=== PATIENT | male | born 1970 | race Caucasian/White ===

== ENCOUNTER 2020-12-22 19:05 | Emergency (ER) | payer BC ==
[2020-12-22] MEDS ORDERED: levETIRAcetam 500 MG in Sodium Chloride 0.9% 100 ML IV ONE (19:09)
[2020-12-22] MEDS ORDERED: LORazepam 2 MG/ML SDV IVPUSH ONE (19:09)
--- NOTE | 2020-12-22 19:14 | EDM.PDOC ---
ED HPI GENERAL MEDICAL PROBLEM - General Chief Complaint: Neuro Symptoms/Deficits Stated Complaint: MAIDA AMB Time Seen by Provider: 12/22/20 19:08 Source of Information: Reports: EMS History Limitations: Reports: Altered Mental Status - History of Present Illness INITIAL COMMENTS - FREE TEXT/NARRATIVE: 50-year-old male presents to the ED per [facility]. Apparently he and others were furniture shopping at [facility] [employer] this evening. Patient suddenly collapsed to the floor and exhibited tonic-clonic activity compatible with grand mal seizure lasting for between 30 and 60 seconds. Apparently CPR was started on scene. It is unclear for how long. Paramedics identified that the patient was confused and disoriented but could answer simple questions. Patient did bite his tongue and was incontinent of urine compatible with a seizure. He reports that he has had no seizure in the past. Is unclear if he is on any medications that may have precipitated seizure. Paramedics established an IV of D5 normal saline. He was given Zofran 4 mg IV. Upon arrival he remains postictal. Complains of pain left shoulder and clavicle on exam. No obvious injuries to his head. Apparently he fell to a carpeted floor in the furniture store. Lungs were clear. Vital signs are normal. Onset: Today, Sudden Onset Date: 12/22/20 Onset Time: 18:45 Duration: Minutes: Location: Reports: Upper Extremity, Left (Had pain when he was rolled onto the gurney in his left shoulder-distal clavicle area) Quality: Reports: Other Severity: Moderate (Patient does not unable to quantify the pain at this time.) Improves with: Reports: Rest Worsens with: Reports: Movement (Of the left upper extremity.) Context: Reports: Other (New onset seizure with fall to a carpeted concrete floor.). Denies: Activity, Exercise, Lifting, Sick Contact, Trauma Associated Symptoms: Reports: Confusion, Malaise. 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) (None.) Left Shoulder Pain Score (Numeric/FACES): 8 - Related Data Allergies Allergy/AdvReac Type Severity Reaction Status Date / Time milk AdvReac Severe Nausea Verified 12/22/20 19:11 Home Meds: Home Meds Albuterol [Ventolin HFA] 2 puff INH Q4H PRN #1 puff 05/05/14 [Rx] Fluticasone Propion/Salmeterol [Advair 250-50 Diskus] 1 inh INH DAILY 12/22/20 [History] Simvastatin [Zocor] 0 mg PO BEDTIME 12/22/20 [History] oxyCODONE HCl/Acetaminophen [Percocet 5-325 mg Tablet] 1 - 2 each PO Q4H PRN #16 tablet 12/22/20 [Rx] Past Medical History Cardiovascular History: Reports: High Cholesterol Respiratory History: Reports: Asthma (Uses Advair Diskus daily and albuterol metered-dose inhaler as needed) - Past Surgical History Other HEENT Surgeries/Procedures: adenoidectomy Social & Family History - Tobacco Use Tobacco Use Within Last Twelve Months: Snuff/Dip - Alcohol Use Alcohol Use History: Yes Days Per Week of Alcohol Use: 0 (Social alcohol user but very rare. Maybe once every 2 to 3 months.) - Recreational Drug Use Recreational Drug Use: No - Living Situation & Occupation Living situation: Reports: with Significant Other Occupation: Employed ED ROS GENERAL - Review of Systems Review Of Systems: See Below (Able to provide review of systems once his cognitive function returned after suffering a grand mal seizure.) Reason Not Obtained: Information was obtained from both his significant other and hims Constitutional: Reports: Malaise, Fatigue. Denies: Fever, Chills HEENT: Reports: Glasses Respiratory: Reports: Wheezing (Patient has a history of chronic asthma.) Cardiovascular: Reports: No Symptoms Endocrine: Reports: No Symptoms GI/Abdominal: Reports: Diarrhea (Occasional bouts of diarrhea. Patient is known to be lactose intolerant.) : Reports: No Symptoms Musculoskeletal: Reports: No Symptoms Skin: Reports: No Symptoms Neurological: Reports: No Symptoms Psychiatric: Reports: No Symptoms Hematologic/Lymphatic: Reports: No Symptoms Immunologic: Reports: No Symptoms - Physical Exam Exam: See Below Exam Limited By: Altered Mental Status General Appearance: Lethargic (Postictal state.), Mild Distress, Other (Temperature 36.2. Patient is actually cool to touch and sweaty. Heart rate was 87. Respiratory is 18 with O2 sats 100% room air. BP 119/66.) Eye Exam: Bilateral Eye: Normal Inspection (No scleral icterus or blepharal pallor.), PERRL (No gaze palsy) Throat/Mouth: Normal Lips, Normal Teeth, Evidence of Tongue Biting (Patient has bit the tip of his tongue bilaterally. No active bleeding) Head Exam: Atraumatic, Normocephalic, Other (No outward signs of head or facial trauma.) Neck: Normal Inspection, Supple, Non-Tender. No: Lymphadenopathy (L), Lymphadenopathy (R) Respiratory/Chest: No Respiratory Distress, Lungs Clear, Normal Breath Sounds, No Accessory Muscle Use. No: Rhonchi, Wheezing Cardiovascular: Normal Peripheral Pulses, Regular Rate, Rhythm, No Edema, No Gallop, No Murmur, No Rub GI/Abdominal: Normal Bowel Sounds, Soft, Non-Tender, No Organomegaly, No Distention, Other (Firm lower abdomen. Questionable full bladder.) (Male) Exam: Other (Patient has been incontinent of urine.) Neuro Exam (Abbreviated): Confused, Slow to Respond DTR: 0: Achilles (R), Achilles (L), 1+: Bicep (R), Bicep (L), Patella (R), Patella (L) Back Exam: Normal Inspection, Other (No outward signs of trauma to the thoracic or lumbar spine.) Extremities: Normal Inspection, No Pedal Edema, Other (Clinically he has not dislocated his left shoulder. Complains of pain over the acromioclavicular joint and distal clavicle. No obvious deformities or hematomas. No other obvious injuries identified.) Psychiatric: Other Skin Exam: Cool, Diaphoretic (Mildly diaphoretic.) #1 Interpretation EKG Date: 12/22/20 Time: 19:22 Rhythm: NSR Rate (Beats/Min): 74 [place]: Normal P-Wave: Present QRS: Other (RSR prime wave in V2 consider normal variant. Minimal Q waves present in leads I and aVL less than 25% of the QRS complex and are considered insignificant. Left ventricular hypertrophy pattern) QT: Prolonged (Moderately prolonged) Course - Vital Signs Last Recorded V/S: Last Vital Signs Temp 36.2 C 12/22/20 19:08 Pulse 68 12/22/20 21:26 Resp 16 12/22/20 21:26 BP 115/71 12/22/20 21:26 Pulse Ox 98 12/22/20 21:26 - Orders/Labs/Meds Orders: Active Orders 24 hr Category Date Time Status Chest 1V Frontal [CR] Stat Exams 12/22/20 19:14 Taken Shoulder Comp Lt [CR] Stat Exams 12/22/20 19:14 Taken Durable Medical Equipment for Discharge [DME for Oth 12/22/20 21:24 Ordered Discharge] [COMM] Stat Labs: Laboratory Tests 12/22/20 12/22/20 12/22/20 Range/Units 19:10 19:10 19:22 WBC 9.64 H (4.23-9.07) K/mm3 RBC 4.76 (4.63-6.08) M/mm3 Hgb 13.0 L (13.7-17.5) gm/dl Hct 38.8 L (40.1-51.0) % MCV 81.5 (79.0-92.2) fl MCH 27.3 (25.7-32.2) pg MCHC 33.5 (32.2-35.5) g/dl RDW Std Deviation 42.7 (35.1-43.9) fL Plt Count 339 H (163-337) K/mm3 MPV 9.1 L (9.4-12.3) fl Neut % (Auto) 36.2 (34.0-67.9) % Lymph % (Auto) 52.3 (21.8-53.1) % [place] % (Auto) 9.2 (5.3-12.2) % Eos % (Auto) 1.1 (0.8-7.0) Baso % (Auto) 0.5 (0.1-1.2) % Neut # (Auto) 3.48 (1.78-5.38) K/mm3 Lymph # (Auto) 5.04 H (1.32-3.57) K/mm3 [place] # (Auto) 0.89 H (0.30-0.82) K/mm3 Eos # (Auto) 0.11 (0.04-0.54) K/mm3 Baso # (Auto) 0.05 (0.01-0.08) K/mm3 Manual Slide Review Abnormal smear Sodium 141 (136-145) mEq/L Potassium 3.6 (3.5-5.1) mEq/L Chloride 103 (98-107) mEq/L Carbon Dioxide 16 L (21-32) mEq/L Anion Gap 25.6 H (5-15) BUN 13 (7-18) mg/dL Creatinine 1.5 H (0.7-1.3) mg/dL Est Cr Clr Drug Dosing 57.33 mL/min Estimated GFR (MDRD) 50 (>60) mL/min BUN/Creatinine Ratio 8.7 L (14-18) Glucose 103 H (70-99) mg/dL Lactic Acid 8.8 H* (0.4-2.0) mmol/L Calcium 9.0 (8.5-10.1) mg/dL Magnesium 2.2 (1.8-2.4) mg/dL Total Bilirubin 0.2 (0.2-1.0) mg/dL AST 36 (15-37) U/L ALT 43 (16-63) U/L Alkaline Phosphatase 117 H (46-116) U/L C-Reactive Protein < 0.2 (<1.0) mg/dL Total Protein 7.0 (6.4-8.2) g/dl Albumin 3.7 (3.4-5.0) g/dl Globulin 3.3 gm/dL Albumin/Globulin Ratio 1.1 (1-2) Urine Color (Yellow) Urine Appearance (Clear) Urine pH (5.0-8.0) Ur Specific [place] (1.005-1.030) Urine Protein (Negative) Urine Glucose (UA) (Negative) Urine Ketones (Negative) Urine Occult Blood (Negative) Urine Nitrite (Negative) Urine Bilirubin (Negative) Urine Urobilinogen (0.2-1.0) Ur Leukocyte Esterase (Negative) U Hyaline Cast (Auto) (0-5) /lpf Urine RBC (0-5) /hpf Urine WBC (0-5) /hpf Ur Epithelial Cells (0-5) /hpf Urine Bacteria (FEW) /hpf Urine Mucus (FEW) /hpf Urine Opiates Screen (NEBJZI=736) Ur Buprenorphine Scrn (CUTOFF=10) Ur Oxycodone Screen (PLB8WN=350) Urine Methadone Screen (TZF0XU=991) Ur Propoxyphene Screen (VSCBIW=097) Ur Barbiturates Screen (CPWDTS=173) Ur Tricyclics Screen (DUDFFD=728) Ur Phencyclidine Scrn (CUTOFF=25) Ur Amphetamine Screen (YJVBZT=167) U Methamphetamines Scrn (HRYDGP=727) U Benzodiazepines Scrn (MQCPKB=650) U Cocaine Metab Screen (NLOWSB=425) U Marijuana (THC) Screen (CUTOFF=50) Ethyl Alcohol 0.00 (0.00) gm% 12/22/20 12/22/20 Range/Units 20:15 20:15 WBC (4.23-9.07) K/mm3 RBC (4.63-6.08) M/mm3 Hgb (13.7-17.5) gm/dl Hct (40.1-51.0) % MCV (79.0-92.2) fl MCH (25.7-32.2) pg MCHC (32.2-35.5) g/dl RDW Std Deviation (35.1-43.9) fL Plt Count (163-337) K/mm3 MPV (9.4-12.3) fl Neut % (Auto) (34.0-67.9) % Lymph % (Auto) (21.8-53.1) % [place] % (Auto) (5.3-12.2) % Eos % (Auto) (0.8-7.0) Baso % (Auto) (0.1-1.2) % Neut # (Auto) (1.78-5.38) K/mm3 Lymph # (Auto) (1.32-3.57) K/mm3 [place] # (Auto) (0.30-0.82) K/mm3 Eos # (Auto) (0.04-0.54) K/mm3 Baso # (Auto) (0.01-0.08) K/mm3 Manual Slide Review Sodium (136-145) mEq/L Potassium (3.5-5.1) mEq/L Chloride (98-107) mEq/L Carbon Dioxide (21-32) mEq/L Anion Gap (5-15) BUN (7-18) mg/dL Creatinine (0.7-1.3) mg/dL Est Cr Clr Drug Dosing mL/min Estimated GFR (MDRD) (>60) mL/min BUN/Creatinine Ratio (14-18) Glucose (70-99) mg/dL Lactic Acid (0.4-2.0) mmol/L Calcium (8.5-10.1) mg/dL Magnesium (1.8-2.4) mg/dL Total Bilirubin (0.2-1.0) mg/dL AST (15-37) U/L ALT (16-63) U/L Alkaline Phosphatase (46-116) U/L C-Reactive Protein (<1.0) mg/dL Total Protein (6.4-8.2) g/dl Albumin (3.4-5.0) g/dl Globulin gm/dL Albumin/Globulin Ratio (1-2) Urine Color Yellow (Yellow) Urine Appearance Clear (Clear) Urine pH 5.5 (5.0-8.0) Ur Specific [place] > or = 1.030 (1.005-1.030) Urine Protein 3+ H (Negative) Urine Glucose (UA) Negative (Negative) Urine Ketones Negative (Negative) Urine Occult Blood Negative (Negative) Urine Nitrite Negative (Negative) Urine Bilirubin Negative (Negative) Urine Urobilinogen 0.2 (0.2-1.0) Ur Leukocyte Esterase Negative (Negative) U Hyaline Cast (Auto) 10-20 H (0-5) /lpf Urine RBC Not seen (0-5) /hpf Urine WBC 5-10 H (0-5) /hpf Ur Epithelial Cells Not seen (0-5) /hpf Urine Bacteria Few (FEW) /hpf Urine Mucus Not seen (FEW) /hpf Urine Opiates Screen Negative (JNVTEO=996) Ur Buprenorphine Scrn Negative (CUTOFF=10) Ur Oxycodone Screen Negative (GIU9OV=358) Urine Methadone Screen Negative (CFY6WH=119) Ur Propoxyphene Screen Negative (GALIUG=874) Ur Barbiturates Screen Negative (BBTADF=059) Ur Tricyclics Screen Negative (LEAJGD=404) Ur Phencyclidine Scrn Negative (CUTOFF=25) Ur Amphetamine Screen Negative (TILWEE=070) U Methamphetamines Scrn Negative (LMXUAW=552) U Benzodiazepines Scrn Negative (ETVKTU=049) U Cocaine Metab Screen Negative (BUEDJS=893) U Marijuana (THC) Screen Presumptive positive H (CUTOFF=50) Ethyl Alcohol (0.00) gm% Meds: Medications Discontinued Medications Generic Name Dose Route Start Last Admin Trade Name Freq PRN Reason Stop Dose Admin Hydromorphone HCl 0.5 mg 12/22/20 20:00 Hydromorphone 0.5 Mg/0.5 Ml Syringe IVPUSH 12/22/20 20:01 ONETIME ONE Hydromorphone HCl 0.5 mg 12/22/20 20:01 12/22/20 20:31 Hydromorphone 0.5 Mg/0.5 Ml Syringe IVPUSH 12/22/20 20:02 0.5 mg ONETIME ONE Administration Dextrose/Sodium Chloride 1,000 mls @ 150 mls/hr 12/22/20 19:15 12/22/20 19:34 Dextrose 5%-Normal Saline IV 150 mls/hr ASDIRECTED JAMILA Administration Levetiracetam 500 mg/ Sodium 105 mls @ 400 mls/hr 12/22/20 19:09 12/22/20 19:34 Chloride IV 12/22/20 19:23 400 mls/hr ONETIME ONE Administration Lorazepam 1 mg 12/22/20 19:09 12/22/20 19:34 Lorazepam 2 Mg/Ml Sdv IVPUSH 12/22/20 19:10 1 mg ONETIME ONE Administration Metoclopramide HCl 7.5 mg 12/22/20 20:07 12/22/20 20:34 Metoclopramide 10 Mg/2 Ml Sdv IVPUSH 12/22/20 20:08 7.5 mg ONETIME ONE Administration Ondansetron HCl 4 mg 12/22/20 20:00 Ondansetron 4 Mg/2 Ml Sdv IVPUSH 12/22/20 20:01 ONETIME ONE - Radiology Interpretation Free Text/Narrative:: 50-year-old male presents to the ED per [facility] after suffering a witnessed grand mal seizure at a local furniture store. Apparently he fell to the floor and had tonic-clonic activity lasting 30 to 60 seconds. After this it appears that he was not breathing so passersby perform CPR on him for an unknown length of time. Paramedics identified that he had suffered a seizure. He was postictal upon their arrival confused and disoriented. They had establish an IV in his left hand. Patient remains postictal at the time of examination the ED. He will obey commands such as opening his mouth and allowing me to look at his tongue. No gaze palsy. Pupils are equal and respond to light and accommodation. He appears that he may have a tender left shoulder. Complains of pain when we rolled him onto the gurney in the left shoulder over the acromioclavicular joint. Plan CT head and neck to be done. Chest x-ray and x-ray of the left shoulder to be done. Will be given Ativan 1 mg IV. IV will be D5 normal saline at 150 mils per hour. Blood sugar on scene was 80. Will also be given Keppra 500 mg IV. Patient has no history of seizure disorder. Unclear med list at this time. - Re-Assessments/Exams Free Text/Narrative Re-Assessment/Exam: 12/22/20 20:00 patient has just returned from the CT suite. He is alert and oriented and able to answer questions. He is having exquisite pain in his left shoulder. X-rays of the chest and shoulder have not been completed. The CT is not yet available for my perusal. Plan he will be given Dilaudid 0.5 mg IV IV for pain relief. Patient received Zofran per the paramedics prior to arrival in the ED. White count is 9.64. Differential is revealing 36.2% neutrophils and 52.3% lymphocytes i.e. and right shift. Hemoglobin is 13.0 with hematocrit of 38.8. Platelet count 339,000. Sodium 141 with a potassium of 3.6. Chloride 103 with a bicarb of 16. Anion gap elevated at 25.6. BUN is 13 with a creatinine of 1.5 and a GFR of 50. Glucose is 103. Lactic acid is elevated 8.8. Calcium is 9.0. Magnesium is 2.2 liver function normal. C-reactive protein less than 0.2. Total protein is 7.0. Blood alcohol is 0.00. 12/22/20 20:03 I was able to speak to the patient's girlfriend whom he has been living with for the last 6-1/2 years. She indicates he rarely drinks alcohol. He has problems with asthma. To her knowledge has not started any new medication. 12/22/20 21:04 CT scan of the head has been performed. Ventricles along with the basal cisterns and sulci over the convexities are within normal limits for the patient's age. No abnormal parenchymal densities are identified. No evidence of intracranial hemorrhage. No midline shift or mass-effect is identified. Bone window settings were reviewed. Visualized mastoid sinuses and paranasal sinuses show nothing acute. No acute calvarial abnormalities appreciated. CT cervical spine completed there is moderate disc space narrowing at the C3-4 level. Mild to space narrowing is noted at the C5-6 level. Slight posterior osteophytes are noted at the C3-4 and C5-6 levels. Slight motion artifact is appreciated in the lower cervical spine. Moderate right-sided neuroforaminal stenosis is noted at the C5-6 level. Other neuroforamen appear fairly well patent. No bony central canal stenosis is seen. AP reconstruction views show mild scattered degenerative change within the uncovertebral joints and minimal scoliosis. Visualized lung apices are normal. No acute fracture or subluxation is seen. X-rays of the chest reveal mild fullness of the pulmonary vasculature. No pleural effusion no pneumothorax no obvious rib fractures from CPR that was performed on this patient. Questionable hairline fracture traveling horizontally through the acromion process on the left side. No subluxation or dislocation of the left shoulder identified. Acromioclavicular joint appears to be normal. Clavicle is intact. New onset seizure which requires further investigation by way of MRI and preferably EEG. Patient will be placed in a sling and swath for left shoulder pain. I will advise him to be off work the rest of this week. Follow-up with primary care physician within the next few days. At this time he will not be placed on antiseizure medication. I will put a requisition for an MRI of the brain with the radiology service and they will call him with an appointment time tomorrow. Note given to excuse him from the workplace for the next week. He will arrange to follow-up with Dr. Diaz orthopedic surgeon in the next 10 to 14 days in regards to his injury to left acromion process. Departure - Departure Time of Disposition: 21:24 Disposition: Home, Self-Care 01 Condition: Fair Clinical Impression: Grand mal seizure Fracture of acromial process of left scapula Qualifiers: Encounter type: initial encounter Fracture type: closed Fracture alignment: nondisplaced Qualified Code(s): S42.125A - Nondisplaced fracture of acromial process, left shoulder, initial encounter for closed fracture - Discharge Information *PRESCRIPTION DRUG MONITORING PROGRAM REVIEWED*: Not Applicable *COPY OF PRESCRIPTION DRUG MONITORING REPORT IN PATIENT HARINI: Not Applicable Prescriptions: oxyCODONE HCl/Acetaminophen [Percocet 5-325 mg Tablet] 1 - 2 each PO Q4H PRN #16 tablet PRN Reason: pain relief. Instructions: Seizure, Adult, [id number] Referrals: PCP,None [Primary Care Provider] - Forms: ED Department Discharge Additional Instructions: Evaluation in the emergency room tonight in regards to a generalized grand mal convulsion that was witnessed. No history of seizure disorder. CPR was performed for short period of time and you may experience chest pain over the next 48 hours from this. Chest x-ray did not reveal any broken ribs. CT scan of the brain was within normal limits showing no intracranial bleeding or mass- effect. No skull fractures identified. CT of your neck was also performed and does show degenerative joint disease and disc disease throughout the lower cervical spine. It does not reveal any broken bones or fractures. X-ray of your left shoulder reveals collarbone to be normal. There is a horizontal fracture through the acromion process that is undisplaced. The humeral head is in normal position without any dislocation of the shoulder. This fracture will heal on its own over the next 3 to 4 weeks. You are to remain in the sling and swath until follow-up with orthopedic surgeon Dr. Emily gallegos in 10 to 14 days time. Please phone his office tomorrow and arrange an appointment. #[phone]. you will require follow-up MRI of the brain. I will have radiology call you tomorrow to arrange a suitable appointment time to come in and have this done. You will need follow-up with a local physician. I understand use to see Dr. Mcintyre who is retired. Please arrange to see a physician at the [facility] or physician title i assistant for follow-up. May use Percocet tabs 5/325 mg strength 1 or 2 tablets every 4-6 hours for left shoulder pain for the next few days. May try Motrin or Aleve 2 tablets every 8 hours for pain relief as well. Sepsis Event Note (ED) - Focused Exam Vital Signs: Vital Signs Temp Pulse Resp BP Pulse Ox 12/22/20 21:26 68 16 115/71 98 12/22/20 19:08 36.2 C 87 18 119/66 100 - My Orders Last 24 Hours: My Active Orders 12/22/20 19:14 Chest 1V Frontal [CR] Stat Shoulder Comp Lt [CR] Stat 12/22/20 21:24 Durable Medical Equipment for Discharge [DME for Discharge] [COMM] Stat - Assessment/Plan Last 24 Hours: My Active Orders 12/22/20 19:14 Chest 1V Frontal [CR] Stat Shoulder Comp Lt [CR] Stat 12/22/20 21:24 Durable Medical Equipment for Discharge [DME for Discharge] [COMM] Stat
[2020-12-22] MEDS ORDERED: Dextrose 5%-0.9% NaCl 1,000 ML IV SCH (19:15)
[2020-12-22] MEDS ORDERED: Ondansetron 4 MG/2 ML SDV IVPUSH ONE (20:00)
[2020-12-22] MEDS ORDERED: HYDROmorphone 0.5 MG/0.5 ML Syringe IVPUSH ONE ×2 (20:00→20:01)
[2020-12-22] MEDS ORDERED: Metoclopramide 10 MG/2 ML SDV IVPUSH ONE (20:07)
--- NOTE | 2020-12-22 20:22 | CT ---
Head CT Technique: Multiple axial sections through the brain were obtained. Intravenous contrast was not utilized. Reconstructed coronal and sagittal images were obtained. Comparison: No prior intracranial imaging is available. Findings: Ventricles along with basal cisterns and sulci over the convexities are within normal limits for the patient's age. No abnormal parenchymal densities are seen. No evidence of intracranial hemorrhage. No midline shift or mass-effect is seen. Bone window settings were reviewed. Visualized mastoid sinuses and paranasal sinuses show nothing acute. No acute calvarial abnormality is appreciated. Impression: 1. No acute intracranial abnormality is appreciated. 2. Consider brain MRI to further evaluate. Diagnostic code #1
--- NOTE | 2020-12-22 20:25 | CT ---
CT cervical spine Technique: Multiple axial sections were obtained from above C1 inferiorly to the top of T2. Reconstructed coronal and sagittal images were obtained. Comparison: No prior studies available for comparison. Findings: There is moderate disc space narrowing at C3-4. Mild disc space narrowing is noted at C5-6. Slight posterior osteophytes are noted at C3-4 and C5-6. Slight motion artifact is seen. Moderate right-sided neural foraminal stenosis is noted at C5-6. Other neural foramina appear fairly well patent. No bony central canal stenosis is seen. AP reconstruction views show mild scattered degenerative change within the uncovertebral joints and minimal scoliosis. Visualized lung apices are clear. No acute fracture or abnormal subluxation is seen. Impression: 1. Mild degenerative change as noted above. Minimal scoliosis is also noted. 2. No acute fracture or abnormal subluxation is seen. Diagnostic code #2
[2020-12-22 21:27] VITALS: BP 115/71; PULSE 68
--- NOTE | 2020-12-23 06:58 | CR ---
Left shoulder: 3 views of the left shoulder were obtained. Comparison: Prior chest x-ray partially showing the shoulder which is dated 01/29/15. Left clavicular shaft shows superior apex angulation which is chronic. Acromioclavicular joint shows no abnormal inferior spurring. Glenohumeral joint appears within normal limits. No acute fracture or other bony abnormality is appreciated. Impression: 1. Nothing acute is seen on 3 view left shoulder study. Diagnostic code #2
--- NOTE | 2020-12-23 06:58 | CR ---
Chest: Frontal view of the chest was obtained. Comparison: Prior chest x-ray of 01/29/15. Heart size and mediastinum are normal. Lungs are clear with no acute parenchymal change. No acute osseous abnormality is appreciated. Impression: 1. Nothing acute is seen on frontal chest x-ray. Diagnostic code #1
== END 2020-12-22 21:41 | disposition home or self-care (01) ==
LOC: JD.ED 19:05
DX: S42.125A Nondisplaced fracture of acromial process, left shoulder, initial encounter for closed fracture (principal); G40.409 Other generalized epilepsy and epileptic syndromes, not intractable, without status epilepticus; Z91.011 Allergy to milk products; W18.39XA Other fall on same level, initial encounter
CPT/HCPCS: 36415; 70450; 71045; 72125; 73030; 80053; 80306; 80307; 81001; 83605; 83735; 85025; 86140; 93005; 96365; 96375; 99285; J1170; J1953; J2060; J2765; J7042; 93010; J2405

== ENCOUNTER 2022-02-17 13:07 | Emergency (ER) | payer BC ==
[2022-02-17 13:33] VITALS: BP 152/81
[2022-02-17 15:55] VITALS: PULSE 64
== END 2022-02-17 15:55 | disposition home or self-care (01) ==
LOC: JD.ED 13:07
DX: R07.89 Other chest pain (principal); J45.909 Unspecified asthma, uncomplicated; Z91.011 Allergy to milk products; Z79.899 Other long term (current) drug therapy; Z86.16 Personal history of COVID-19
CPT/HCPCS: 36415; 71045; 71045-26; 80053; 80179; 82803; 84484; 85025; 85610; 93005; 99285

== ENCOUNTER 2024-02-06 17:08 | Emergency (ER) | payer BC ==
[2024-02-06] MEDS: Alum Hydrox/Mag Hydrox/Simeth 30 ML, Lidocaine 2% 15 ML PO ONE (18:04)
[2024-02-06] MEDS: Famotidine 20 MG Tab PO ONE (18:04)
[2024-02-06] MEDS: Aspirin 81 MG Tab.Chew PO ONE (18:04)
[2024-02-06 18:20] LABS: BASOPHILS ABSOLUTE AUTO 0.1 K/mm3 (0.0-0.2); BASOPHILS PERCENT AUTO 0.8 % (0.0-1.0); EOSINOPHILS ABSOLUTE AUTO 0.1 K/mm3 (0.0-0.4); EOSINOPHILS PERCENT AUTO 1.2 % (0.0-6.0); HEMATOCRIT 40.2 % (42.0-52.0); HEMOGLOBIN 13.2 gm/dl (14.0-18.0); IMMATURE GRAN ABSOLUTE AUTO 0.02 K/mm3 (0.00-0.05); IMMATURE GRAN PERCENT AUTO 0.2 % (0.0-0.4); LYMPHOCYTES ABSOLUTE AUTO 3.3 K/mm3 (1.0-4.8); LYMPHOCYTES PERCENT AUTO 36.7 % (24.0-44.0); MEAN CORPUSCULAR HEMOGLOBIN 26.8 pg (28.0-32.0); MEAN CORPUSCULAR HGB CONC 32.8 g/dl (32.0-36.0); MEAN CORPUSCULAR VOLUME 81.5 fl (83.0-99.0); MEAN PLATELET VOLUME 8.6 fl (9.4-12.4); MONOCYTES ABSOLUTE AUTO 0.7 K/mm3 (0.0-0.8); MONOCYTES PERCENT AUTO 8.2 % (0.0-8.0); NEUTROPHILS ABSOLUTE AUTO 4.7 K/mm3 (1.8-7.7); NEUTROPHILS PERCENT AUTO 52.9 % (41.0-71.0); PLATELET COUNT,PLT 278 K/mm3 (150-400); RED BLOOD CELL COUNT 4.93 M/mm3 (4.52-5.90); WHITE BLOOD CELL COUNT,WBC 8.89 K/mm3 (3.9-11.3)
[2024-02-06 18:54] LABS: A/G RATIO 1.1 (1-2); ALBUMIN 3.8 g/dl (3.4-5.0); ANION GAP 14.9 (5-15); BILIRUBIN TOTAL 0.6 mg/dL (0.2-1.0); CALCIUM 9.2 mg/dL (8.5-10.1); EST CRCL DRUG DOSING (CG) 82.38 mL/min; POTASSIUM,K 3.9 mEq/L (3.5-5.1); PROTEIN TOTAL,TP 7.3 g/dl (6.4-8.2)
[2024-02-06 19:50] LABS: CORONAVIRUS COVID-19 NAA NEGATIVE (NEGATIVE); INFLUENZA A NAA NEGATIVE (NEGATIVE); RESPIRATORY SYNCYTIAL VIR NAA NEGATIVE (NEGATIVE)
[2024-02-06 22:36] VITALS: BP 129/77; PULSE 54
== END 2024-02-06 21:30 | disposition home or self-care (01) ==
LOC: JD.ED 17:08
DX: R07.9 Chest pain, unspecified (principal); J44.9 Chronic obstructive pulmonary disease, unspecified; Z86.16 Personal history of COVID-19; Z87.891 Personal history of nicotine dependence; Z91.011 Allergy to milk products
CPT/HCPCS: 0241U; 36415; 71045; 80053; 83690; 84484; 85025; 93005; 99285; A9270; 93010; 99283

== ENCOUNTER 2025-01-04 18:13 | Emergency (ER) | payer OTHER ==
[2025-01-04 18:29] VITALS: BP 117/95; PULSE 70
[2025-01-04] MEDS: Diphtheria,Pertussis(Acell),Tetanus Vaccine 0.5 ML Syringe IM ONE (19:53)
[2025-01-04] MEDS: Lidocaine 1% 10 ML MDV INJECT ONE (19:53)
== END 2025-01-04 20:00 | disposition home or self-care (01) ==
LOC: JD.ED 18:13
DX: S01.81XA Laceration without foreign body of other part of head, initial encounter (principal); E78.00 Pure hypercholesterolemia, unspecified; J44.89 Other specified chronic obstructive pulmonary disease; Z91.011 Allergy to milk products; Z86.16 Personal history of COVID-19; Z79.51 Long term (current) use of inhaled steroids; Z23 Encounter for immunization; V29.408A Other motorcycle driver injured in collision with unspecified motor vehicles in traffic accident, initial encounter; Y93.89 Activity, other specified
CPT/HCPCS: 12013; 70450; 90471; 90715; 99284; J2003; 99283